=== PATIENT | male | born 1965 | race Caucasian/White ===

== ENCOUNTER 2016-10-31 11:58 | Emergency (ER) | payer OTHER ==
[2016-10-31 14:01] LABS: AMPHETAMINE POS (NEG); BARBITURATES NEG (NEG); BENZODIAZEPINES NEG (NEG); COCAINE NEG (NEG); MARIJUANA NEG (NEG); OPIATES POS (NEG); TRICYCLIC ANTIDEPRESSANTS NEG (NEG); U METHADONE NEG (NEG)
== END 2016-10-31 14:25 | disposition home or self-care (01) ==
LOC: EDBD 11:58 → CED 11:58
PROVIDERS: Emergency Medicine
DX: F11.10 Opioid abuse, uncomplicated (principal); F15.10 Other stimulant abuse, uncomplicated
CPT/HCPCS: 80307; 96360; 99284

== ENCOUNTER 2017-02-02 13:20 | Observation (INO) | payer OTHER ==
[~2017-02-02] VITALS: Ht 177.8 cm; Wt 73.8 kg
--- NOTE | ~2017-02-02 | HP ---
Unit #: [id number] #: [id number] Patient: SANJAY SINGER [id number] [address] [address] [id number] I MR#: [id number] NAME: SANJAY SINGER. ROOM: 568 Age: 51 Sex: M Admission Date: 02/02/2017 : 1965 Attending Physician: Lali Yoon M.D. Primary Care Physician: No Primary Care Physician HISTORY AND PHYSICAL CHIEF COMPLAINT Flank pain. HISTORY OF PRESENT ILLNESS The patient is a 51-year-old male with history of chronic back pain and history of IV drugs in the past and alcoholism in the past, quit alcohol in 2000, and history of nephrolithiasis, presented to the emergency room complaining of the left flank back pain. The patient stated the patient had history of kidney stones and he passed the stones on Saturday and associated with hematuria. The patient was having worsening back pain that he had a vasovagal episode. The patient presented to the emergency room with flank pain and was found to have a distended bladder with a Whitehead. The patient had output with more than a liter. The patient is being admitted for the above reasons. PAST MEDICAL HISTORY History of diverticulitis. PAST SURGICAL HISTORY History of left knee replacement and appendectomy. SOCIAL HISTORY History of no smoking, history of alcohol abuse in the past, quit 2001, and denies any history of drug abuse. FAMILY HISTORY Positive for the prostate cancer and the pancreatic cancer. ALLERGIES No known drug allergies. HOME MEDICATIONS None. REVIEW OF SYMPTOMS Positive for flank pain. Positive for the urinary retention and hematuria. The patient denies any chest pain. The patient denies any fever. The patient denies any nausea and vomiting and all other systems are reviewed and none except as mentioned above. PHYSICAL EXAMINATION GENERAL APPEARANCE: The patient is lying on the bed, not in acute distress. VITAL SIGNS: Temperature 98. Pulse 103. Respiratory rate 16. Blood Unit #: [id number] #: [id number] Patient: SANJAY SINGER pressure 133/94. Sating 100% at room air. HEENT: Head: Atraumatic, normocephalic. ENT: Pupils equal, round, reacting to light and accommodation. Extraocular movements are intact. Dry mucous membrane. NECK: Supple. LUNGS: Decreased air entry at the bases. HEART: Regular rate and rhythm. ABDOMEN: Soft. Positive bowel sounds. EXTREMITIES: No cyanosis. No clubbing. BACK: Positive for the left CVA tenderness with the Whitehead catheter draining the clear yellow urine. DIAGNOSTIC STUDIES LABORATORY: WBC 7.5, hemoglobin 14.4, hematocrit 43.6, platelets 331. UR shows 10 to 25 urine RBCs. Sodium 141, potassium 4.5, chloride 105, bicarb 28, glucose 94, BUN 14, creatinine 1.1, AST 28, ALT 30, albumin 4.3. Lipase is 41. IMAGING: CT of the abdomen and pelvis showed distended urinary bladder with calcifications and bladder diverticula. Recommend cystoscopy and no stones found. ASSESSMENT 1. Urinary retention. 2. History of kidney stones. PLAN To admit the patient to observation with telemetry. Continue with IV fluids. The patient has been discussed with Urology and recommend the admission for the electrolyte imbalance. We will consult Urology for cystoscopy and continue with the Whitehead catheter and replace the electrolytes and repeat the labs again in the morning. Dictated by Sandra Jane TD: 02/02/2017 18:57 JOB #: [id number] HISTORY AND PHYSICAL Page 1 of 1 X LALI YOON MD X HISTORY AND PHYSICAL
--- NOTE | ~2017-02-02 | DS ---
Unit #: [id number] #: [id number] Patient: SANJAY RAMIREZ [id number] [address] [place], [place] [address] [id number] I MR#: [id number] NAME: SANJAY RAMIREZ. ROOM: 568 Age: 51 Sex: M Admission Date: 02/02/2017 : 1965 Discharge Date: 02/03/2017 Attending Physician: Alix Yoon M.D. Primary Care Physician: No Primary Care Physician DISCHARGE SUMMARY PRINCIPAL DIAGNOSES 1. Urinary retention, status post Whitehead catheter placement. 2. History of bladder stones, status post passage. 3. 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 4. Chronic back pain. 5. Microcytic anemia with pending iron indices. 6. History of IV drug abuse in remission. CONSULTANTS Dr. Nolan, Urology. PROCEDURES 1. Bilateral renal ultrasound without evidence of hydronephrosis. Patient has a 6 cm right renal cyst. 2. CT of the abdomen and pelvis done, revealed bladder diverticula and distention of urinary bladder. 3. CT scan of the abdomen and pelvis done in the emergency department reveals significant bladder distention. Craniocaudal dimension 28 cm transverse was 11 cm. Several bladder diverticula and calcification of the wall of the bladder noted. CLINICAL HISTORY AND HOSPITAL COURSE Mr. Ramirez is a nice 51-year-old male who presents to the emergency department with increasing left flank pain described as sharp stabbing and achy. Patient also has chronic back pain that is not acutely worse. He had noted some hematuria at home and passed a few bladder stones. However, he continued to have pain and thus presented to the emergency department. CT scan revealed severe bladder distention. Patient had Whitehead catheter placed, greater than 1 liter of urine released and patient was placed in observation for evaluation. Patient was seen in consultation today by urology who recommends discharge home with Whitehead catheter. Fortunately there is no evidence of hydronephrosis and renal sounds and renal function has remained stable. My discussion with patient indicates he most likely has significant benign prostatic hypertrophy. He has had many months of nocturia, strength and difficulty to urinate with subsequent vasovagal syncope, due to straining with urination. He does occasionally have overflow incontinence as well. I am going to place him on Flomax and again discharge home with Whitehead catheter. He does not note any new leg weakness and he does not have any bowel difficulty, so I do not think there is any nerve impingement leading to these symptoms. He will be discharged home day. DISCHARGE CONDITION Unit #: [id number] #: [id number] Patient: SANJYA RAMIREZ Stable. DISCHARGE STATUS Discharge to home. DISCHARGE MEDICATIONS 1. [place] 5/325 one tablet every 8 hours, q.8 p.r.n. for pain, number given 10. 2. Flomax 0.4 mg daily, number given 30. DISCHARGE INSTRUCTIONS Patient was instructed to follow a regular diet. He can increase his activity as tolerated. FOLLOWUP Patient will followup with Dr. Nolan next week. Again will maintain Whitehead catheter until that time. Will need outpatient cystoscopy and voiding trial in the office. Dictated by... Iqra Wall M.D. CONNER/sugar TD: 02/04/2017 10:30 JOB #: [id number] DISCHARGE SUMMARY Page 1 of 1 X Iqra Wall MD X DISCHARGE SUMMARY
--- NOTE | ~2017-02-02 | CO ---
Unit #: [id number] #: [id number] Patient: SANJAY RAMIREZ [id number] [address] [address] [id number] I MR#: [id number] NAME: SANJAY RAMIREZ ROOM: 568 Age: 51 Sex: M Admission Date: 02/02/2017 : 1965 Attending Physician: Alix Yoon M.D. Primary Care Physician: Primary Care Physician No Consultation Date: 02/03/2017 CONSULTATION REPORT REASON FOR CONSULTATION Urinary retention. HISTORY OF PRESENT ILLNESS Mr. Ramirez is a 51-year-old man who presented to the ER last night with severe difficulty urinating. He reports that over the past several days, he has only been able to dribble some urine out. He has passed some small stones and blood and blood clots as well. He reports severe hesitancy, intermittency, postvoid dribbling, weak urinary stream, straining to urinate. In the ER, a Whitehead catheter was placed and 3500 mL of urine was drained. The Whitehead catheter was left in situ. A CT scan was performed and this demonstrated a massively dilated urinary bladder (CT was performed before catheter placement), nodular appearance to the inferior bladder of unclear significance, enlarged prostate, but no hydronephrosis, ureteral or renal stone. Of note, the CT was performed without contrast. Urology consultation was requested. PAST MEDICAL HISTORY Low back pain, history of left knee replacement, diverticulitis. PAST SURGICAL HISTORY Exploratory laparotomy, status post appendectomy, left knee replacement. MEDICATIONS None. ALLERGIES None. SOCIAL HISTORY The patient does not smoke. He quit drinking in 2000. Denies illicit drug use. REVIEW OF SYSTEMS The patient denies blurry vision or epistaxis. Positive for headaches over the past week. No chest pain or shortness of breath. No diarrhea or constipation. No blood in the stool. He does report mild left abdominal pain prior to catheter placement. No numbness or tingling. No problems with ambulation. PHYSICAL EXAMINATION VITAL SIGNS: Temperature 98.0, blood pressure 119/79, pulse 64, O2 saturation 98% on room air. GENERAL: Awake and alert. Oriented x3. Unit #: [id number] #: [id number] Patient: SANJAY RAMIREZ HEENT: Pupils are equal, round, and reactive to light. No drainage in the nasal or oropharynx. NECK: Supple. No palpable masses or lymphadenopathy. CHEST: Normal effort. Normal to palpation. ABDOMEN: Soft, nontender, nondistended. Palpably normal aorta. CARDIOVASCULAR: Regular rate and rhythm. EXTREMITIES: No cyanosis or edema. PSYCHIATRIC: Normal affect and mood. SKIN: Warm and dry. DIAGNOSTIC STUDIES LABORATORY RESULTS: White blood cell count 7.2, hemoglobin 12.9, platelets 248. BMP is pending. IMAGING STUDIES: CT results as described above. ASSESSMENT AND PLAN This is a 51-year-old man with severe urinary retention, status post Whitehead catheter placement. 1. Continue indwelling Whitehead catheter upon discharge. 2. Followup BMP and monitor for postobstructive diuresis. 3. Plan outpatient cystoscopy in [facility] after discharge. Dictated by... Edgardo Nolan M.D. NAVNEET/bryan TD: 02/04/2017 05:01 JOB #: [id number] CONSULTATION REPORT Page 1 of 1 X X CONSULTATION REPORT
--- NOTE | ~2017-02-02 | US77 ---
[facility] A Service of [facility] RADIOLOGY TEXT RESULTS PATIENT: SANJAY SINGER LOCATION: [facility] [address] : [birth year] UNIT #: [id number] AGE: [address]: LALI YOON MD SEX: M ORDER DR: [id number] [facility] [address] [facility]. [place], [place] [address] [id number] I MR#: [id number] Acc #: [id number] NAME: SANJAY SINGER : 1965 SEX: M STUDY DATE/TIME: 02/03/2017 8:50 UNIT: [facility] ROOM: [facility] STUDY DESCRIPTION: US Kidney Bilateral Complete Attending Physician: Lali Yoon M.D. Ordering Physician: [facility] MEDICAL IMAGING REPORT This report is preliminary unless electronic signature is present EXAM Renal sonogram HISTORY Previous history of kidney stones. Acute onset of urinary retention. TECHNIQUE Ultrasound evaluation was performed with meyers-scale and color flow imaging. FINDINGS The right kidney measures 6.2 x 12.4 cm with no evidence of hydronephrosis. There is a simple cyst laterally measuring 6 cm in maximum diameter. The left kidney measures 6.6 x 10.4 cm with no evidence of mass or hydronephrosis. No dominant cysts are seen. There is a Whitehead catheter in the bladder and the bladder is collapsed. IMPRESSION 6 cm right renal cyst. No evidence of hydronephrosis. STAT * RESULT Dictated by... Hawk Fitzgerald M.D. THIS IS AN ELECTRONICALLY VERIFIED REPORT Hawk Fitzgerald M.D. at 02/03/2017 11:25 AM RLF/pcl [facility] A Service of [facility] RADIOLOGY TEXT RESULTS PATIENT: SANJAY SINGER LOCATION: [facility] : [birth year] UNIT #: [id number] AGE: [address]: LALI YOON MD SEX: M ORDER DR: TD: 02/03/2017 11:06 JOB #: [id number] MEDICAL IMAGING REPORT Page 1 of 1 COPY
--- NOTE | ~2017-02-02 | CT4 ---
[facility] A Service of [facility] & [facility] RADIOLOGY TEXT RESULTS PATIENT: SANJAY SINGER LOCATION: [facility] 568-01 : [birth year] UNIT #: [id number] AGE: [address]: LALI YOON MD SEX: M ORDER DR: [id number] [facility] [address] [facility] [address] [address]. [place], [place] [address] [id number] I MR#: [id number] Acc #: [id number] NAME: SANJAY SINGER. : 1965 SEX: M STUDY DATE/TIME: 02/02/2017 14:37 UNIT: [facility] ROOM: [facility] STUDY DESCRIPTION: CT Abd and Pelv Wo Cont Attending Physician: Lali Yoon M.D. Ordering Physician: Bryon Chery D.O. Primary Care Physician: No Primary Care Physician MEDICAL IMAGING REPORT This report is preliminary unless electronic signature is present EXAM CT abdomen and pelvis without contrast. HISTORY Left flank pain for [address] abdomen and pelvis was performed without contrast. This CT exam was performed with one or more of the following radiation dose reduction techniques: automatic exposure control, adjustment of mA and/or kV according to patient size, and iterative reconstruction. FINDINGS CT ABDOMEN: There is severe urinary bladder distension measuring nearly 29 cm in craniocaudal dimension, and nearly 11 cm x 20.5 cm in AP and transverse dimensions. The distended bladder extends nearly 10 cm superior to the umbilicus. The liver, gallbladder, spleen, pancreas, and adrenal glands unremarkable. No hydronephrosis. There is a 5.3 cm simple cyst in the posterior mid right kidney. Normal caliber abdominal aorta. CT PELVIS: There are lobulated, partly calcified nodules along the right inferolateral margin of the urinary bladder, along its luminal surface, the largest of which measures 2.7 cm x 1.0 cm. These include several punctate calcifications. There is an apparent thin walled partial septation along the right and left inferior margins of the urinary bladder, raising the possibility that a portion of the bladder distension is secondary to a bladder diverticulum. Recommend cystoscopy for further evaluation. Moderate amount of stool in nondistended rectum. No free fluid. No inflammatory stranding. Appendectomy. IMPRESSION 1. Severe distension of the urinary bladder extending over a STS. [facility] A Service of [facility] RADIOLOGY TEXT RESULTS PATIENT: SANJAY SINGER LOCATION: [facility] 568-01 : [birth year] UNIT #: [id number] AGE: [address]: LALI YOON MD SEX: M ORDER DR: craniocaudal dimension of nearly 29 cm and AP and transverse dimensions of approximately 11 cm x 20.5 cm. The dome of the bladder extends 10 cm superior to the level of the umbilicus. 2. Several nodular lesions along the right lateral and right inferolateral margin of the urinary bladder along its luminal surface, the largest of which measures 2.7 cm x 1.0 cm. These include several punctate calcifications. Cystoscopic correlation is recommended. 3. There are thin partial septations along the right and left inferior margins of the urinary bladder, raising the possibility of a component of the bladder distension resulting from a large bladder diverticulum, severely distended. 4. No free fluid in the abdomen or pelvis. 5. Appendectomy. 6. No hydronephrosis. No renal calculi. Incidental simple cyst in the right kidney measures 5.3 cm. Dictated by... Santosh John M.D. THIS IS AN ELECTRONICALLY VERIFIED REPORT Santosh John M.D. at 02/03/2017 10:06 PM ROLDAN/cb TD: 02/03/2017 16:52 JOB #: [id number] MEDICAL IMAGING REPORT Page 1 of 1 COPY
[2017-02-02 14:03] LABS: URINE SOURCE CLEAN CATCH
[2017-02-02 14:11] LABS: URINE APPEARANCE CLEAR; URINE BILIRUBIN NEG (NEG); URINE BLOOD 1+ (NEG); URINE COLOR YELLOW; URINE GLUCOSE NEG (NEG); URINE KETONE NEG (NEG); URINE LEUKOCYTE ESTERASE NEG (NEG); URINE NITRATE NEG (NEG); URINE PROTEIN NEG (NEG); URINE SPECIFIC GRAVITY 1.011 (1.003-1.035); URINE UROBILINOGEN 0.2 MG/DL (NEG)
[2017-02-02 14:12] LABS: BASOPHIL# 0.1 X10e3 (0-0.3); BASOPHIL% 1.5 % (0-2.5); DIFF IND NO; EOSINOPHIL# 0.2 X10e3 (0-0.7); EOSINOPHIL% 2.8 % (0.0-7.0); HEMATOCRIT 43.6 % (38.0-50.0); HEMOGLOBIN 14.4 gm/dL (13.0-16.0); LYMPHOCYTE# 1.6 X10e3 (1.0-3.5); LYMPHOCYTE% 21.2 % (17.0-45.0); MEAN CELL VOLUME 79.3 FL (83-96); MEAN CORPUSCULAR HEMOGLOBIN 26.3 PG (28-34); MEAN CORPUSCULAR HGB CONC 33.1 g/dL (30-36); MEAN PLATELET VOLUME 7.3 FL (6.5-11.5); MONOCYTE# 0.4 X10e3 (0-1.0); MONOCYTE% 5.8 % (3.0-12.0); NEUTROPHIL# 5.1 X10e3 (1.5-7.1); NEUTROPHIL% 68.7 % (40-75); PLATELET COUNT 331 X10e3 (140-420); RED CELL DISTRIBUTION WIDTH 14.7 % (11.0-15.5); WHITE BLOOD COUNT 7.5 X10e3 (4.0-10.5)
[2017-02-02 14:15] LABS: URINE BACTERIA AUWI NEG (NEGATIVE); URINE SQUAMOUS EPITHELIAL CELL NONE SEEN /[HPF]
[2017-02-02 14:16] LABS: CULTURE INDICATED? NO
[2017-02-02 14:58] LABS: ALBUMIN SERUM 4.3 g/dL (3.5-5.0); ALKALINE PHOSPHATASE 67 U/L (32-92); ALT (SGPT) 30 U/L (10-40); AST (SGOT) 28 U/L (10-42); BILIRUBIN,TOTAL 0.3 mg/dL (0.2-2.0); BLOOD UREA NITROGEN 14 mg/dL (9-23); BUN/CREATININE RATIO 12.72; CALCIUM SERUM 9.7 mg/dL (8.4-10.2); CARBON DIOXIDE 28 mmol/L (22-31); CHLORIDE 105 mmol/L (100-111); CREATININE SERUM 1.1 mg/dL (0.6-1.4); GLOM FILT RATE Estimated 76.3 mL/min (>60); GLUCOSE FASTING 94 mg/dL (70-110); LIPASE 41 U/L (22-51); POTASSIUM 4.5 mmol/L (3.5-5.1); PROTEIN TOTAL SERUM 7.5 g/dL (6.0-8.3); SODIUM 141 mmol/L (135-145)
[2017-02-02 15:03] LABS: BILIRUBIN, DIRECT <0.1 mg/dL (0.0-0.2); BILIRUBIN,INDIRECT 0.2 mg/dL (0.0-0.9)
[2017-02-02] MEDS ORDERED: NO MEDICATIONS (18:36)
[2017-02-03 06:30] LABS: HEMATOCRIT 39.6 % (38.0-50.0); HEMOGLOBIN 12.9 gm/dL (13.0-16.0); MEAN CELL VOLUME 79.1 FL (83-96); MEAN CORPUSCULAR HEMOGLOBIN 25.7 PG (28-34); MEAN CORPUSCULAR HGB CONC 32.5 g/dL (30-36); MEAN PLATELET VOLUME 7.4 FL (6.5-11.5); RED CELL DISTRIBUTION WIDTH 14.7 % (11.0-15.5)
[2017-02-03 07:05] LABS: BUN/CREATININE RATIO 25.71; CALCIUM SERUM 8.6 mg/dL (8.4-10.2); CREATININE SERUM 0.7 mg/dL (0.6-1.4); GLOM FILT RATE Estimated 107.8 mL/min (>60); POTASSIUM 4.5 mmol/L (3.5-5.1)
[2017-02-03] MEDS ORDERED: FLOMAX0.4 M1 PO (10:16)
[2017-02-03] MEDS ORDERED: LORTAB 5-325 M1 EACH PO (10:17)
[2017-02-03 11:05] LABS: IRON SERUM 66 ug/dL (45-182); TOTAL IRON BINDING CAPACITY 349 ug/dL (252-460); TRANSFERRIN 250 mg/dL (180-329); TRANSFERRIN SATURATION 19 % (20-50)
== END 2017-02-03 11:37 | disposition home or self-care (01) ==
LOC: CED 13:20 → C5C 17:34 → CED 17:46 → C5C 17:46
PROVIDERS: Emergency Medicine; Internal Medicine
DX: R33.9 Retention of urine, unspecified (principal); N28.1 Cyst of kidney, acquired; N32.3 Diverticulum of bladder; G89.29 Other chronic pain; M54.9 Dorsalgia, unspecified; D50.9 Iron deficiency anemia, unspecified; Z87.898 Personal history of other specified conditions; Z87.442 Personal history of urinary calculi; Z80.42 Family history of malignant neoplasm of prostate; Z79.899 Other long term (current) drug therapy; Z90.49 Acquired absence of other specified parts of digestive tract; Z96.652 Presence of left artificial knee joint
CPT/HCPCS: 36415; 51702; 74176; 76770; 80048; 80076; 81003; 83540; 83550; 83690; 85025; 85027; 94760; 96372; 96374; 99285; G0378; J1650; J1885

== ENCOUNTER 2017-02-06 15:59 | Emergency (ER) | payer OTHER ==
[~2017-02-06] VITALS: Ht 177.8 cm; Wt 73.5 kg
[~2017-02-06 15:59] MED LIST: FLOMAX0.4 M1 PO; LORTAB 5-325 M1 EACH PO; NO MEDICATIONS
== END 2017-02-06 19:35 | disposition home or self-care (01) ==
LOC: CED 15:59
DX: Z46.6 Encounter for fitting and adjustment of urinary device (principal); R33.9 Retention of urine, unspecified
CPT/HCPCS: 99283

== ENCOUNTER 2017-02-19 00:33 | Emergency (ER) | payer OTHER | END 2017-02-19 06:00 | disposition home or self-care (01) | LOC: CED 00:33 | DX: T83.098A Other mechanical complication of other urinary catheter, initial encounter (principal); R03.0 Elevated blood-pressure reading, without diagnosis of hypertension; Z98.890 Other specified postprocedural states | CPT/HCPCS: 99283 ==